=== PATIENT | male | born 1970 | race Caucasian/White ===

== ENCOUNTER 2018-09-05 04:24 | Emergency (ER) | payer BC ==
[2018-09-05 05:28] LABS: Absolute Lymphocytes (CBC) 2.2 K/uL (0.7-4.9); Absolute Monocytes 0.5 K/uL (0.1-1.3); Absolute Neutrophil 2.8 K/uL (1.8-8.0); Basophils % 0.6 % (0-1.3); Lymphocytes % 39.2 % (15.3-44.8); MPV 7.2 fL (7.6-11.3); Monocytes % 8.5 % (3.3-12.3); RBC Red Blood Cell Count 4.85 M/uL (4.33-5.43)
[2018-09-05 05:29] LABS: Protime INR 1.06
[2018-09-05 05:48] LABS: ALT/SGPT 85 U/L (12-78); AST/SGOT 36 U/L (15-37); Albumin 4.4 g/dL (3.4-5.0); Alkaline Phosphatase 64 U/L (45-117); BUN Blood Urea Nitrogen 23 mg/dL (7-18); Bicarbonate 27 mmol/L (21-32); Bilirubin Direct 0.1 mg/dL (0-0.2); Bilirubin Total 0.7 mg/dL (0.2-1.0); Glucose Level 114 mg/dL (74-106); Magnesium 2.2 mg/dL (1.8-2.4); NT PRO-BNP 13 pg/mL (<125); Potassium 3.8 mmol/L (3.5-5.1); Protein, Total 7.6 g/dL (6.4-8.2); Sodium Level 140 mmol/L (136-145); Troponin (Emerg Dept Use Only) < 0.02 ng/mL (0.0-0.045)
[2018-09-05] MEDS ORDERED: LIDOCAINE VISCOUS 2% SOLN 15 ML UDC ONE (06:58)
[2018-09-05] MEDS ORDERED: MAGNE/ALUM HYDROXD 30 ML UCUP ONE (06:58)
--- NOTE | 2018-09-05 07:19 | RAD REPORT ---
EXAM DESCRIPTION: Shayy Single View09/05/2018 5:32 am CLINICAL HISTORY: Chest pain COMPARISON: 2011 FINDINGS: The lungs appear clear of acute infiltrate. The heart is normal size. Pacemaker leads in place IMPRESSION: No acute abnormalities displayed
--- NOTE | 2018-09-05 07:19 | RAD REPORT ---
EXAM DESCRIPTION: CT - Chest For Pe Angio - 09/05/2018 6:46 am CLINICAL HISTORY: Chest pain COMPARISON: None. TECHNIQUE: Dynamically enhanced axial 3 mm thick images of the chest were obtained during administra tion of <100> mL Isovue 370 IV contrast. Coronal and oblique reconstruction images were generated and reviewed. Exam utilizes a protocol for optimal evaluation of pulmonary arterial tree. Maximum intensity projections 3D imaging was utilized All CT scans are performed using dose optimization technique as appropriate and may include automated exposure control or mA/KV adjustment according to patient size. FINDINGS: The evaluation of the peripheral pulmonary arteries is suboptimal secondary to respiratory motion artifact. A pulmonary embolus is not seen. A thoracic aortic aneurysm is not noted. A pleural effusion is not seen. A pericardial effusion is not seen. A lung consolidation is not present. Fatty liver IMPRESSION: Negative for a pulmonary embolism.
--- NOTE | 2018-09-05 07:26 | ER ---
Nurse's Notes [facility] Name: Mainor Childers Age: 48 yrs Sex: Male : 1970 Arrival Date: 09/05/2018 Time: 04:30 Bed 18 Private MD: Diagnosis: Dyspnea Presentation: 09/05 05:03 Presenting complaint: Patient states: "I was using the restroom and felt a flush jd3 feeling all over my body, fatigue, and dizzy. I sat down and waiting for the feeling to pass before I came to the ER. 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 Transition of care: patient was not received from another setting of care. Onset of symptoms was September 05, 2018. Risk Assessment: Do you want to hurt yourself or someone else? Patient reports no desire to harm self or others. Initial Sepsis Screen: Does the patient meet any 2 criteria? No. Patient's initial sepsis screen is negative. Does the patient have a suspected source of infection? No. Patient's initial sepsis screen is negative. Care prior to arrival: None. 05:03 Method Of Arrival: Wheelchair jd3 05:03 Acuity: BRINA 2 jd3 Triage Assessment: 05:13 Respiratory: Onset: The symptoms/episode began/occurred just prior to arrival, the jd3 patient has mild shortness of breath. Historical: - Allergies: 05:08 No Known Allergies; jd3 - Home Meds: 05:08 tamsulosin oral oral [Active]; pantoprazole oral oral [Active]; AndroGel transdermal jd3 transdermal [Active]; - PMHx: 05:09 prostate problem; bradicardia; jd3 - PSHx: 05:09 pacemaker; jd3 - Immunization history:: Adult Immunizations up to date. - Social history:: Smoking status: Patient/guardian denies using tobacco. - Ebola Screening: : Patient negative for fever greater than or equal to 101.5 degrees Fahrenheit, and additional compatible Ebola Virus Disease symptoms. Screenin:13 Abuse screen: Denies threats or abuse. Nutritional screening: No deficits noted. jd3 Tuberculosis screening: No symptoms or risk factors identified. Fall Risk IV access (20 points). Ambulatory Aid- None/Bed Rest/Nurse Assist (0 pts). Gait- Normal/Bed Rest/Wheelchair (0 pts) Mental Status- Oriented to own ability (0 pts). Total Leonard Fall Scale indicates No Risk (0-24 pts). Assessment: 05:11 General: Appears in no apparent distress. uncomfortable, Behavior is calm, cooperative, jd3 appropriate for age, anxious. Pain: Complains of pain in chest Pain currently is 0 out of 10 on a pain scale. Quality of pain is described as pressure. Neuro: Level of Consciousness is awake, alert, obeys commands, Oriented to person, place, time, situation, Appropriate for age. Cardiovascular: Heart tones S1 S2 present Capillary refill < 3 seconds Patient's skin is warm and dry. Rhythm is regular. Respiratory: Reports shortness of breath at rest Airway is patent Respiratory effort is even, unlabored, Respiratory pattern is regular, symmetrical, Breath sounds are clear bilaterally. GI: No signs and/or symptoms were reported involving the gastrointestinal system. : No signs and/or symptoms were reported regarding the genitourinary system. EENT: No signs and/or symptoms were reported regarding the EENT system. Derm: Skin is intact, Skin is dry, Skin is normal, Skin temperature is warm. Musculoskeletal: Circulation, motion, and sensation intact. Range of motion: intact in all extremities. 06:34 Reassessment: Patient appears in no apparent distress at this time. No changes from jd3 previously documented assessment. Patient and/or family updated on plan of care and expected duration. Pain level reassessed. Patient is alert, oriented x 3, equal unlabored respirations, skin warm/dry/pink. 06:48 Reassessment: pt reporting epigastric pressure and burping, provider notified, new jd3 orders received see JUN. 07:00 Reassessment: RECD REPORT FROM JOSÉ MIGUEL SORIANO. 48YO WM P/W CP, H/O CARDIAC DISEASE. REPEAT bp CARDIAC ENZYMES PENDNG FOR DISPO. 08:07 Reassessment: PT D/C HOME AMBULATORY WITH FAMILY, DX WITH DYSPNEA. bp Vital Signs: 05:09 BP 132 / 91; Pulse 72; Resp 17 S; Temp 98.5(O); Pulse Ox 100% on R/A; Weight 98.88 kg jd3 (R); Height 5 ft. 10 in. (177.80 cm) (R); Pain 0/10; 06:03 BP 118 / 75; Pulse 79; Resp 18; Pulse Ox 98% on R/A; mt 06:50 BP 121 / 64; Pulse 85; Resp 17 S; Pulse Ox 99% on R/A; Pain 0/10; jd3 08:06 BP 126 / 80; Pulse 73; Resp 16; Temp 98.5; Pulse Ox 98% ; bp 05:09 Body Mass Index 31.28 (98.88 kg, 177.80 cm) jd3 ED Course: 04:30 Patient arrived in ED. es 04:42 Fam Cary MD is Attending Physician. tw4 04:48 EKG done, by ED staff, reviewed by Fam Cary MD. Inserted saline lock: 20 gauge mt in right antecubital area, using aseptic technique. Blood collected. 05:01 Sagar Torres, RN is Primary Nurse. jd3 05:06 Triage completed. jd3 05:10 Arm band placed on. jd3 05:14 Patient has correct armband on for positive identification. Bed in low position. Call jd3 light in reach. Side rails up X 1. Adult w/ patient. 05:31 X-ray completed. Portable x-ray completed in exam room. Patient tolerated procedure kw well. 05:32 XRAY Chest (1 view) In Process Unspecified. EDMS 06:47 CT Chest For PE Angio In Process Unspecified. EDMS 07:22 Attending Physician role handed off by Fam Cary MD seven 07:22 Renaldo Hamlin MD is Attending Physician. seven 07:32 Kp Tsang MD is Referral Physician. tw4 07:32 Benedicto Wolff MD is Referral Physician. tw4 08:05 No provider procedures requiring assistance completed. IV discontinued, intact, bp bleeding controlled, No redness/swelling at site. Pressure dressing applied. Administered Medications: 06:51 Drug: GI Cocktail without - (Maalox Suspension 30 ml, Lidocaine Liquid 2 % 15 jd3 ml) Route: PO; 07:04 Follow up: Response: No adverse reaction; Pain is decreased bp Outcome: 07:26 Discharge ordered by . tw4 08:08 Discharged to home ambulatory, with family. bp 08:08 Condition: stable 08:08 Discharge instructions given to patient, Instructed on discharge instructions, follow up and referral plans. medication usage, Demonstrated understanding of instructions, follow-up care, medications, Prescriptions given X 1. 08:09 Patient left the ED. bp Signatures: Dispatcher [employer] Renaldo Segovia MD MD cha Salyer, Gabrielle Paniagua, Sagar Singh mt, RN RN jd3 Channing Marley RN RN bp Wadley, Terrence, MD MD tw4
--- NOTE | 2018-09-05 07:26 | EDPHYS ---
Physician Documentation [facility] Name: Mainor Childers Age: 48 yrs Sex: Male : 1970 Arrival Date: 09/05/2018 Time: 04:30 Bed 18 Private MD: ED Physician Renaldo Hamlin HPI: 09/05 07:01 This 48 yrs old Male presents to ER via Wheelchair with complaints of tw4 Breathing Difficulty, Faint sensation. 07:01 The patient has shortness of breath at rest. Onset: The symptoms/episode began/occurred tw4 today. Duration: The symptoms are continuous, and are unchanged since they started. The patient's shortness of breath has no apparent modifying factors. Severity of symptoms: At their worst the symptoms were moderate in the emergency department the symptoms have resolved. The patient has not experienced similar symptoms in the past. Historical: - Allergies: 05:08 No Known Allergies; jd3 - Home Meds: 05:08 tamsulosin oral oral [Active]; pantoprazole oral oral [Active]; AndroGel transdermal jd3 transdermal [Active]; - PMHx: 05:09 prostate problem; bradicardia; jd3 - PSHx: 05:09 pacemaker; jd3 - Immunization history:: Adult Immunizations up to date. - Social history:: Smoking status: Patient/guardian denies using tobacco. - Ebola Screening: : Patient negative for fever greater than or equal to 101.5 degrees Fahrenheit, and additional compatible Ebola Virus Disease symptoms. ROS: 07:01 Constitutional: Negative for fever, chills, and weight loss, Cardiovascular: Negative tw4 for chest pain, palpitations, and edema, Abdomen/GI: Negative for abdominal pain, nausea, vomiting, diarrhea, and constipation, Back: Negative for injury and pain, MS/Extremity: Negative for injury and deformity, Skin: Negative for injury, rash, and discoloration, Neuro: Negative for headache, weakness, numbness, tingling, and seizure. 07:01 Respiratory: Positive for shortness of breath, Negative for cough, dyspnea on exertion. Exam: 07:01 Constitutional: This is a well developed, well nourished patient who is awake, alert, tw4 and in no acute distress. Head/Face: Normocephalic, atraumatic. Chest/axilla: Normal chest wall appearance and motion. Nontender with no deformity. No lesions are appreciated. Cardiovascular: Regular rate and rhythm with a normal S1 and S2. No gallops, murmurs, or rubs. Normal PMI, no JVD. No pulse deficits. Respiratory: Lungs have equal breath sounds bilaterally, clear to auscultation and percussion. No rales, rhonchi or wheezes noted. No increased work of breathing, no retractions or nasal flaring. Abdomen/GI: Soft, non-tender, with normal bowel sounds. No distension or tympany. No guarding or rebound. No evidence of tenderness throughout. Back: No spinal tenderness. No costovertebral tenderness. Full range of motion. MS/ Extremity: Pulses equal, no cyanosis. Neurovascular intact. Full, normal range of motion. Neuro: Awake and alert, GCS 15, oriented to person, place, time, and situation. Cranial nerves II-XII grossly intact. Motor strength 5/5 in all extremities. Sensory grossly intact. Cerebellar exam normal. Normal gait. Psych: Awake, alert, with orientation to person, place and time. Behavior, mood, and affect are within normal limits. Vital Signs: 05:09 BP 132 / 91; Pulse 72; Resp 17 S; Temp 98.5(O); Pulse Ox 100% on R/A; Weight 98.88 kg jd3 (R); Height 5 ft. 10 in. (177.80 cm) (R); Pain 0/10; 06:03 BP 118 / 75; Pulse 79; Resp 18; Pulse Ox 98% on R/A; mt 06:50 BP 121 / 64; Pulse 85; Resp 17 S; Pulse Ox 99% on R/A; Pain 0/10; jd3 08:06 BP 126 / 80; Pulse 73; Resp 16; Temp 98.5; Pulse Ox 98% ; bp 05:09 Body Mass Index 31.28 (98.88 kg, 177.80 cm) jd3 MDM: 04:42 Patient medically screened. 09/05 04:48 Order name: Basic Metabolic Panel; Complete Time: 07:22 mt 09/05 04:48 Order name: CBC with Diff; Complete Time: 07:22 co 09/05 04:48 Order name: LFT's; Complete Time: 07:22 co 09/05 04:48 Order name: Magnesium; Complete Time: 07:22 mt 09/05 04:48 Order name: NT PRO-BNP; Complete Time: 07:22 mt 09/05 04:48 Order name: PT-INR; Complete Time: 07:22 mt 09/05 04:48 Order name: Troponin (emerg Dept Use Only); Complete Time: 07:22 mt 09/05 04:48 Order name: XRAY Chest (1 view); Complete Time: 07:22 mt 09/05 04:48 Order name: EKG; Complete Time: 04:49 mt 09/05 04:48 Order name: Cardiac monitoring; Complete Time: 04:49 mt 09/05 04:48 Order name: EKG - Nurse/Tech; Complete Time: 04:49 mt 09/05 05:32 Order name: CT Chest For PE Angio; Complete Time: 07:22 tw4 09/05 07:04 Order name: Troponin (emerg Dept Use Only) bp 09/05 04:48 Order name: IV Saline Lock; Complete Time: 04:49 mt 09/05 04:48 Order name: Labs collected and sent; Complete Time: 04:49 mt 09/05 04:48 Order name: O2 Per Protocol; Complete Time: 04:49 mt 09/05 04:48 Order name: O2 Sat Monitoring; Complete Time: 04:49 mt EC:01 Rate is 74 beats/min. Rhythm is regular. QRS Nikolai is Normal. [place] interval is normal. QRS tw4 interval is normal. QT interval is normal. No Q waves. T waves are Normal. No ST changes noted. Clinical impression: NSR w/ Non-specific ST/T Changes. Interpreted by me. Reviewed by me. Administered Medications: 06:51 Drug: GI Cocktail without - (Maalox Suspension 30 ml, Lidocaine Liquid 2 % 15 jd3 ml) Route: PO; 07:04 Follow up: Response: No adverse reaction; Pain is decreased bp Disposition: 09/05/18 07:26 Discharged to Home. Impression: Dyspnea. - Condition is Stable. - Discharge Instructions: Gastritis, Adult, Shortness of Breath, [id number]. - Prescriptions for Protonix 40 mg Oral Tablet - take 1 tablet by ORAL route once daily; 30 tablet. - Medication Reconciliation Form, Thank You Letter, Antibiotic Education, Prescription Opioid Use form. - Follow up: Private Physician; When: Upon discharge from the Emergency Department; Reason: If symptoms return, Recheck today's complaints, Continuance of care. Follow up: Kp Tsang MD; When: Upon discharge from the Emergency Department; Reason: If symptoms return, Recheck today's complaints, Continuance of care. Follow up: Benedicto Wolff MD; When: Upon discharge from the Emergency Department; Reason: If symptoms return, Recheck today's complaints, Continuance of care. - Problem is new. - Symptoms have improved. Signatures: Dispatcher [employer] EDRenaldo Meeks MD MD cha Thompson, [place] Sagar Nixon RN RN jChanning Irene RN RN bp Wadley, Terrence, MD MD tw4 Corrections: (The following items were deleted from the chart) 07:32 07:26 09/05/2018 07:26 Discharged to Home. Impression: Dyspnea. Condition is Stable. tw4 Forms are Medication Reconciliation Form, Thank You Letter, Antibiotic Education, Prescription Opioid Use. Follow up: Private Physician; When: Upon discharge from the Emergency Department; Reason: If symptoms return, Recheck today's complaints, Continuance of care. Problem is new. Symptoms have improved. tw4 08:09 07:32 09/05/2018 07:26 Discharged to Home. Impression: Dyspnea. Condition is Stable. bp Forms are Medication Reconciliation Form, Thank You Letter, Antibiotic Education, Prescription Opioid Use. Follow up: Private Physician; When: Upon discharge from the Emergency Department; Reason: If symptoms return, Recheck today's complaints, Continuance of care. Follow up: Kp Tsang; When: Upon discharge from the Emergency Department; Reason: If symptoms return, Recheck today's complaints, Continuance of care. Follow up: Benedicto Wolff; When: Upon discharge from the Emergency Department; Reason: If symptoms return, Recheck today's complaints, Continuance of care. Problem is new. Symptoms have improved. tw4
--- NOTE | 2018-09-05 07:52 | EKG ---
Test Date: 2018-09-05 Test Time: 04:41:20 Branch Administrator: WALLACE MEASUREMENT RESULTS: Intervals: Rate: 70 ME: 170 QRSD: 86 QT: 398 QTc: 429 [place]: P: 39 ME: 170 QRS: 79 T: 4 INTERPRETIVE STATEMENTS: Normal sinus rhythm Normal ECG Compared to ECG 10/03/2011 15:52:35 no significant change from previous ECG Electronically Signed On 09-05-18 07:52:15 CDT by Emre Gloria
[2018-09-05 14:39] VITALS: TEMP 98.5
[2018-09-05 14:44] VITALS: BP 126/80; O2SAT 98
--- NOTE | 2018-09-06 07:53 | EKG ---
Test Date: 2018-09-05 Test Time: 06:52:39 [employer] Production Technician: WALLACE MEASUREMENT RESULTS: Intervals: Rate: 74 AK: 170 QRSD: 78 QT: 368 QTc: 408 [place]: P: 22 AK: 170 QRS: 42 T: 24 INTERPRETIVE STATEMENTS: Normal sinus rhythm Anterior infarct, age undetermined Abnormal ECG Compared to ECG 09/05/2018 04:41:20 Myocardial infarct finding now present Electronically Signed On 09-06-18 07:52:40 CDT by Emre Gloria
== END 2018-09-05 08:09 | disposition home or self-care (01) ==
LOC: ER 04:24
DX: R06.00 Dyspnea, unspecified (principal); N42.9 Disorder of prostate, unspecified; Z95.0 Presence of cardiac pacemaker
CPT/HCPCS: 36415; 71045; 71275; 80048; 80076; 83735; 83880; 84484; 85025; 85610; 93005; 99284; Q9967

== ENCOUNTER 2018-12-11 08:47 | Emergency (ER) | payer BC ==
[2018-12-11 09:27] LABS: Absolute Lymphocytes (CBC) 1.8 K/uL (0.7-4.9); Basophils % 0.3 % (0-1.3); Hematocrit 46.1 % (39.6-49.0); Lymphocytes % 33.5 % (15.3-44.8); MPV 6.9 fL (7.6-11.3); RBC Red Blood Cell Count 4.93 M/uL (4.33-5.43)
[2018-12-11 09:45] LABS: BUN Blood Urea Nitrogen 18 mg/dL (7-18); Bicarbonate 27 mmol/L (21-32); Glucose Level 116 mg/dL (74-106); Potassium 3.8 mmol/L (3.5-5.1); Sodium Level 142 mmol/L (136-145); Troponin (Emerg Dept Use Only) < 0.02 ng/mL (0.0-0.045)
--- NOTE | 2018-12-11 09:56 | RAD REPORT ---
EXAM DESCRIPTION: CT - Head Brain Wo Cont - 12/11/2018 9:44 am CLINICAL HISTORY: Hypertension, dizziness, syncope COMPARISON: None. TECHNIQUE: Axial 5 mm thick images of the head were obtained without IV contrast. All CT scans are performed using dose optimization technique as appropriate and may include automated exposure control or mA/KV adjustment according to patient size. FINDINGS: No intracranial hemorrhage, mass, edema or shift of mid-line structures. No acute infarcti on changes seen. No abnormal extra-axial fluid collections. Ventricles are normal. Mastoid air cells and visualized portions of the paranasal sinuses are clear. No acute bony findings. IMPRESSION: Negative non-contrast CT head examination.
--- NOTE | 2018-12-11 09:58 | EKG ---
Test Date: 2018-12-11 Test Time: 09:30:22 Steam Frame Operator: LISA MEASUREMENT RESULTS: Intervals: Rate: 67 SD: 174 QRSD: 80 QT: 388 QTc: 409 [place]: P: 21 SD: 174 QRS: 40 T: -3 INTERPRETIVE STATEMENTS: Normal sinus rhythm Normal ECG Compared to ECG 09/05/2018 06:52:39 Myocardial infarct finding no longer present Electronically Signed On 12-11-18 09:57:56 CDT by Emre Gloria
--- NOTE | 2018-12-11 10:34 | ER ---
Nurse's Notes [facility] Name: Mainor Childers Age: 48 yrs Sex: Male : 1970 Arrival Date: 12/11/2018 Time: 08:49 Bed 8 Private MD: Roge Caputo Diagnosis: Hypertension Presentation: 12/11 09:14 Presenting complaint: Patient states: Feeling sort of off for a few days, intermittent jl7 dizziness, BP this morning 175/90. Transition of care: patient was not received from another setting of care. Onset of symptoms was December 08, 2018. Risk Assessment: Do you want to hurt yourself or someone else? Patient reports no desire to harm self or others. Initial Sepsis Screen: Does the patient meet any 2 criteria? No. Patient's initial sepsis screen is negative. Does the patient have a suspected source of infection? No. Patient's initial sepsis screen is negative. Care prior to arrival: None. 09:14 Method Of Arrival: Ambulatory [facility] 09:14 Acuity: BRINA 3 jl7 Triage Assessment: 09:17 General: Appears in no apparent distress. uncomfortable, Behavior is calm, cooperative, jl7 appropriate for age. Pain: Denies pain. EENT: No signs and/or symptoms were reported regarding the EENT system. Neuro: Level of Consciousness is awake, alert, obeys commands, Oriented to person, place, time, situation, Moves all extremities. Full function Gait is steady, Speech is normal, Facial symmetry appears normal. Cardiovascular: Patient's skin is warm and dry. Respiratory: Airway is patent Respiratory effort is even, unlabored, Respiratory pattern is regular, symmetrical. GI: Abdomen is round non-distended, Abd is soft and non tender X 4 quads. Reports bloating. : No signs and/or symptoms were reported regarding the genitourinary system. Derm: Skin is pink, warm \T\ dry. Musculoskeletal: No signs and/or symptoms reported regarding the musculoskeletal system. Historical: - Allergies: : No Known Allergies; jl7 - Home Meds: : AndroGel transdermal [Active]; pantoprazole Oral [Active]; jl7 - PMHx: :17 bradicardia; Prostate problem; Pacemaker; jl7 - PSHx: : pacemaker; jl7 - Immunization history:: Adult Immunizations up to date. - Ebola Screening: : No symptoms or risks identified at this time. - Family history:: not pertinent. - Social history:: Smoking status: unknown. - Hospitalizations: : No recent hospitalization is reported. Screenin:19 Abuse screen: Denies threats or abuse. Denies injuries from another. Nutritional jl7 screening: No deficits noted. Tuberculosis screening: No symptoms or risk factors identified. Fall Risk IV access (20 points). Total Leonard Fall Scale indicates No Risk (0-24 pts). Assessment: 09:19 General: See triage assessment. jl7 10:00 Reassessment: Patient appears in no apparent distress at this time. No changes from jl7 previously documented assessment. Patient and/or family updated on plan of care and expected duration. Pain level reassessed. Patient is alert, oriented x 3, equal unlabored respirations, skin warm/dry/pink. Vital Signs: 09:17 BP 143 / 95; Pulse 86; Resp 16 S; Pulse Ox 100% on R/A; Weight 99.79 kg (R); Height 5 jl7 ft. 11 in. (180.34 cm) (R); Pain 0/10; 09:54 BP 145 / 86; Pulse 67; Resp 13 S; Pulse Ox 98% on R/A; jl7 11:18 BP 128 / 89; Pulse 65; Resp 16 S; Pulse Ox 98% on R/A; jl7 09:17 Body Mass Index 30.68 (99.79 kg, 180.34 cm) jl7 ED Course: 08:49 Patient arrived in ED. mr 08:49 Roge Caputo MD is Private Physician. mr 08:59 Frederic Landeros, CHRISTIE is Primary Nurse. jl7 08:59 Modesto Colón MD is Attending Physician. rn 09:16 Triage completed. jl7 09:17 Arm band placed on right wrist. jl7 09:18 Initial lab(s) drawn, by me, sent to lab. Inserted saline lock: 20 gauge in right aa5 antecubital area, using aseptic technique. Blood collected. 09:19 Patient has correct armband on for positive identification. Placed in gown. Bed in low jl7 position. Call light in reach. Side rails up X 1. security monitor on. Pulse ox on. NIBP on. 09:46 CT Head Brain wo Cont In Process Unspecified. EDMS 10:33 Roge Caputo MD is Referral Physician. rn 11:18 No provider procedures requiring assistance completed. IV discontinued, intact, jl7 bleeding controlled, No redness/swelling at site. Pressure dressing applied. Administered Medications: No medications were administered Outcome: 10:33 Discharge ordered by MD. rn 11:18 Discharged to home ambulatory. jl7 11:18 Condition: stable 11:18 Discharge instructions given to patient, Instructed on discharge instructions, follow up and referral plans. Demonstrated understanding of instructions, follow-up care. 11:19 Patient left the ED. jl7 Signatures: Dispatcher [employer] EDNJ Gaston Meredith Colón, MD SAURAV Salvador rn Mable Adam, RN RN aa5 Frederic Landeros RN RN jl7
--- NOTE | 2018-12-11 10:35 | EDPHYS ---
Physician Documentation [facility] Name: Mainor Childers Age: 48 yrs Sex: Male : 1970 Arrival Date: 12/11/2018 Time: 08:49 Bed 8 Private MD: Roge Caputo ED Physician Modesto Colón HPI: 12/11 09:24 This 48 yrs old Male presents to ER via Ambulatory with complaints of High rn Blood Pressure. 09:24 The patient has elevated blood pressure and discovered this at home. Onset: The rn symptoms/episode began/occurred at an unknown time. Modifying factors:. Associated signs and symptoms: Pertinent positives:. 09:25 Associated signs and symptoms: Pertinent positives: dizziness, Pertinent negatives: rn chest pain, dyspnea, headache, nausea, visual changes, vomiting, weakness. Severity of symptoms: At its worst the blood pressure was moderate, in the emergency department the blood pressure is improved. The patient has experienced similar episodes in the past. The patient has not recently seen a physician. Reports high blood pressure over last year or so, has not been started on meds yet, states pcp has been keeping an eye on it. Reports feeling intermittent lightheadedness over last 2-3 days, denies chest pain/sob/abd pain/bowel or bladder issues. No focal neurological complaint.. 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 - Ebola Screening: : No symptoms or risks identified at this time. - Family history:: not pertinent. - Social history:: Smoking status: unknown. - Hospitalizations: : No recent hospitalization is reported. ROS: 09:25 Constitutional: Negative for fever, chills, and weight loss, Eyes: Negative for injury, rn pain, redness, and discharge, Neck: Negative for injury, pain, and swelling, Cardiovascular: Negative for chest pain, palpitations, and edema, Respiratory: Negative for shortness of breath, cough, wheezing, and pleuritic chest pain, Abdomen/GI: Negative for abdominal pain, nausea, vomiting, diarrhea, and constipation, Back: Negative for injury and pain, MS/Extremity: Negative for injury and deformity, Skin: Negative for injury, rash, and discoloration, Neuro: Negative for headache, weakness, numbness, tingling, and seizure. Exam: 09:25 Constitutional: This is a well developed, well nourished patient who is awake, alert, rn and in no acute distress. Sitting upright. Head/Face: Normocephalic, atraumatic. Eyes: Pupils equal round and reactive to light, extra-ocular motions intact. Lids and lashes normal. Conjunctiva and sclera are non-icteric and not injected. Cornea within normal limits. Periorbital areas with no swelling, redness, or edema. ENT: MMM Neck: Trachea midline, no thyromegaly or masses palpated, and no cervical lymphadenopathy. Supple, full range of motion Cardiovascular: Regular rate and rhythm. No pulse deficits. Respiratory: No increased work of breathing, no retractions or nasal flaring. Abdomen/GI: soft, non-tender MS/ Extremity: Pulses equal, no cyanosis. Neurovascular intact. Full, normal range of motion. Equal circumference. Neuro: Awake and alert, GCS 15, oriented to person, place, time, and situation. Cranial nerves II-XII grossly intact. Motor strength 5/5 in all extremities. Sensory grossly intact. Cerebellar exam normal. 09:49 ECG was reviewed by the Attending Physician. rn Vital Signs: 09:17 BP 143 / 95; Pulse 86; Resp 16 S; Pulse Ox 100% on R/A; Weight 99.79 kg (R); Height 5 jl7 ft. 11 in. (180.34 cm) (R); Pain 0/10; 09:54 BP 145 / 86; Pulse 67; Resp 13 S; Pulse Ox 98% on R/A; jl7 11:18 BP 128 / 89; Pulse 65; Resp 16 S; Pulse Ox 98% on R/A; jl7 09:17 Body Mass Index 30.68 (99.79 kg, 180.34 cm) jl7 MDM: 08:59 Patient medically screened. rn 10:31 Differential diagnosis: hypertensive crisis, Malignant HTN. Data reviewed: vital signs, rn nurses notes, lab test result(s), EKG, radiologic studies, CT scan, and as a result, I will discharge patient. Counseling: I had a detailed discussion with the patient and/or guardian regarding: the historical points, exam findings, and any diagnostic results supporting the discharge/admit diagnosis, lab results, radiology results, the need for outpatient follow up, to return to the emergency department if symptoms worsen or persist or if there are any questions or concerns that arise at home. Response to treatment: the patient's symptoms have mildly improved after treatment, and as a result, I will discharge patient. Special discussion: I discussed with the patient/guardian in detail that at this point there is no indication for admission to the hospital. It is understood, however, that if the symptoms persist or worsen the patient needs to return immediately for re-evaluation. Based on the history and exam findings, there is no indication for further emergent testing or inpatient evaluation. I discussed with the patient/guardian the need to see the math professor for further evaluation of the symptoms. I discussed with the patient/guardian the need to see the primary care provider for further evaluation of the symptoms. ED course: Neg w/u here, neg ct head, recommend outpt f/u with pcp and cardiology, and take BP diary, sees Dr. Caputo and will likely need medication soon. . 10:33 Counseling: I had a detailed discussion with the patient and/or guardian regarding: the rn presence of at least one elevated blood pressure reading (>120/80) during this emergency department visit. Special discussion: I have referred the patient to see his PCP for further evaluation of high blood pressure. 12/11 09:13 Order name: CBC with Diff; Complete Time: :49 rn 12/11 09:13 Order name: Basic Metabolic Panel; Complete Time: :49 rn 12/11 09:13 Order name: IV Start; Complete Time: 09:20 rn 12/11 09:13 Order name: EKG; Complete Time: 09:14 rn 12/11 09:13 Order name: Troponin (emerg Dept Use Only); Complete Time: 09:49 rn 12/11 09:13 Order name: CT Head Brain wo Cont; Complete Time: 10:06 rn 12/11 09:13 Order name: EKG - Nurse/Tech; Complete Time: 09:29 rn EC:49 Rate is 67 beats/min. Rhythm is regular. QRS Amelia is Normal. PA interval is normal. QRS rn interval is normal. QT interval is normal. No Q waves. T waves are Normal. No ST changes noted. Clinical impression: Normal ECG. Interpreted by me. Reviewed by me. Administered Medications: No medications were administered Disposition: 12/11/18 10:33 Discharged to Home. Impression: Hypertension. - Condition is Stable. - Discharge Instructions: Hypertension, Managing Your Hypertension. - Medication Reconciliation Form, Thank You Letter, Antibiotic Education, Prescription Opioid Use form. - Follow up: Roge Caputo MD; When: As needed; Reason: Recheck today's complaints, Re-evaluation by your physician. - Problem is an ongoing problem. - Symptoms have improved. Signatures: Dispatcher [employer] EDMS Modesto Colón MD MD rn Leal, Jahala, RN RN jl7 Corrections: (The following items were deleted from the chart) 11:19 10:33 12/11/2018 10:33 Discharged to Home. Impression: Hypertension. Condition is jl7 Stable. Forms are Medication Reconciliation Form, Thank You Letter, Antibiotic Education, Prescription Opioid Use. Follow up: Roge Caputo; When: As needed; Reason: Recheck today's complaints, Re-evaluation by your physician. Problem is an ongoing problem. Symptoms have improved. rn
[2018-12-11 11:37] VITALS: O2SAT 98
[2018-12-11 11:39] VITALS: BP 128/89
== END 2018-12-11 11:19 | disposition home or self-care (01) ==
LOC: ER 08:47
DX: I10 Essential (primary) hypertension (principal); Z95.0 Presence of cardiac pacemaker
CPT/HCPCS: 36415; 70450; 80048; 84484; 85025; 93005; 99284

== ENCOUNTER 2020-07-28 09:44 | Day surgery (SDC) | payer OTHER, BC ==
[2020-07-25 14:29] LABS: Absolute Lymphocytes (CBC) 2.7 K/uL (0.7-4.9); Basophils % 0.4 % (0-1.3); Hematocrit 47.4 % (39.6-49.0); Lymphocytes % 45.1 % (15.3-44.8); MPV 7.2 fL (7.6-11.3); RBC Red Blood Cell Count 5.02 M/uL (4.33-5.43)
[2020-07-25 14:34] LABS: Potassium 4.1 mmol/L (3.5-5.1)
[2020-07-25 15:28] LABS: Blood Morphology Comment NOT SEEN (NOT SEEN); Platelet Estimate ADEQ
[2020-07-28] MEDS: Ringers Lactate 1,000 ML IV ONE ×2 (10:00→10:15)
[2020-07-28] MEDS ORDERED: ROCURONIUM 50 MG/5 ML VIAL IV ONE (10:14)
[2020-07-28] MEDS ORDERED: FENTANYL CITR 100 MCG/2 ML ONE (10:14)
[2020-07-28] MEDS ORDERED: MIDAZOLAM HCL 2 MG/2 ML INJ ONE (10:14)
[2020-07-28] MEDS ORDERED: LIDOCAINE 1% MPF 5 ML VIAL ONE (10:14)
[2020-07-28] MEDS ORDERED: dexAMETHasone 10 MG/ML VIAL ONE (10:14)
[2020-07-28] MEDS ORDERED: propofoL 200 MG/20 ML VIAL IV ONE (10:14)
[2020-07-28] MEDS ORDERED: CEFAZOLIN/SWI 1gm 1 GM/10 ML SYR ONE (10:16)
[2020-07-28] MEDS ORDERED: GLYCOPYRROLATE 0.2 MG/ML SYR ONE ×3 (10:48→11:32)
--- NOTE | 2020-07-28 11:18 | P.BOP ---
Preoperative diagnosis: tender reducible umbilical hernia, incarcerated LIH Postoperative diagnosis: same Primary procedure: 1. Laparoscopic repair tender incarcerated left inguinal hernia with mesh Secondary procedure: 2. open repair of tender umbilical hernia [employer] Laborer: Chanelle Reilly) Estimated blood loss: <10cc Specimen: hernia sac Findings: as above Anesthesia: General Complications: None Implants: 3d mesh inguinal Transferred to: Recovery Room
[2020-07-28] MEDS ORDERED: KETOROLAC 30 MG/ML INJ ONE (11:32)
[2020-07-28] MEDS ORDERED: NEOSTIGMINE 1 MG/ML -5 ML ONE (11:34)
[2020-07-28] MEDS ORDERED: MEPERIDINE HCL 25 MG/ML SYR ONE (12:05)
--- NOTE | 2020-07-28 12:25 | OP ---
Date of Procedure: 07/28/2020 Surgeon: Nick Almonte MD Preoperative Diagnoses: 1.Tender reducible umbilical hernia. 2.Incarcerated tender left inguinal hernia. Procedures: 1.Laparoscopic repair of tender left inguinal hernia with mesh. 2.Open repair of umbilical hernia. Anesthesia: General plus local. Mesh: 3D medium mesh in the left inguinal region. Complications: None. Estimated Blood Loss: Less than 10 cc. Findings: As above. Indications: This is a case of a 50-year-old patient who comes with 2 problems, a tender umbilical h ernia and a tender left inguinal hernia. Benefits, alternatives, and risks of repair were fully expl ained to the patient which include, but not limited to infection, bleeding, damage to adjacent struct ures, anesthesia complications, recurrence, chronic pain, chronic numbness, [place], and even . He a lso understands this may not relieve any symptoms. He might need more than one surgical intervention . He signed a consent. Also consenting for the use of mesh after fully explained to him the pros an d cons of mesh placement and allowed to ask questions to his satisfaction. Procedure In Detail: The patient was brought to the operating room and placed in supine position. A nesthesia was done without complication. Time-out was called. Abdominal and inguinal region were pr epped and draped in a sterile fashion. Incision was made in the periumbilical region. We tried to m ruperto that incision to be able to do laparoscopic hernia repair and also used the same incision for the umbilical hernia. Once we have a curvilinear incision, we proceeded to open the anterior rectus she ath, exposed the muscle, and retracted laterally to expose the posterior rectus sheath. The extraper itoneal space was gently developed with the help of blunt dissection. Then, we placed a space maker balloon tipped catheter directed towards the pubic symphysis. A laparoscope was placed in the area a nd the balloon was inflated under direct visualization to create the extraperitoneal space. After th at, the balloon was deflated and removed carefully. Camera was reinserted once again. Air was insuf flated. Once we have visualization of the area, we proceeded to place a 5 mm trocar just above the p ubis symphysis, another one usp between the first and second one. The preperitoneal space was fu rther developed by exposing the inferior epigastric vessels and keeping anterior to the dissection. The Isael's ligament was dissected laterally to it junction with the iliac veins. The dissection co ntinued inferiorly to the iliopubic tract avoiding damage to the femoral branch of the genitofemoral nerve and lateral femoral cutaneous nerve. The cord structures were skeletonized. We noticed a fernando ia sac. Since they had some fatty content, they were reduced. The hernia sac was removed from the c ord and directed into the peritoneal cavity. At that moment, I proceeded to place a 3D mesh, rolled into a complex cylinder, put it through the trocar site. The mesh was placed to cover the direct, in direct spaces. The mesh was secured with a SorbaFix device placed lateral and superior to the iliopu bic tract and inferomedial to the Isael's ligaments. We checked the area for hemostasis, no bleedin g. Hernia sac was retracting into the peritoneal cavity. At that moment, I proceeded to allow to es cape from that area, removed the trocars, closed the anterior rectus sheath with #1 Vicryl. Irrigate d subcutaneous tissue and then we directed our attention to the umbilical area. The same incision wa s used. We proceeded to identify the hernia sac, removed it from the umbilical skin, removed the her jacqueline sac, cleaned the fascia edges. The fascia edges seemed to come together without any major tensio n. So, we proceeded to close that area with #1 Vicryl in a [id number] fashion multiple times. The area was irrigated. Subcutaneous tissue was closed with 3-0 chromic. Skin was closed in a subcu ticular fashion with 3-0 chromic and Steri-Strips on top. Sponge count and instrument counts correct . The patient tolerated the procedure well. The patient was sent to Recovery in stable condition. Disposition: Home. Activity: As tolerated, no heavy lifting. Plan: Follow up in my office in 1 week, call for appointment [phone]. Keep area dry for 48 hours, then may shower. Keep Steri-Strip intact. Cold compress to the left inguinal region. Medications: See orders. HM/MODL Voice ID: [id number] Report ID: [id number]
[2020-07-28 13:45] VITALS: BP 131/75; TEMP 96.8; O2SAT 98
== END 2020-07-28 13:05 | disposition home health service (06) ==
LOC: OR 09:44
PROVIDERS: ATTEND Surgery
PROC: 0WQF0ZZ Repair Abdominal Wall, Open Approach (ICD-10-PCS; 2020-07-28)
PROC: 0YU64JZ Supplement Left Inguinal Region with Synthetic Substitute, Percutaneous Endoscopic Approach (ICD-10-PCS; principal; 2020-07-28 11:30)
DX: K42.9 Umbilical hernia without obstruction or gangrene (principal); K40.30 Unilateral inguinal hernia, with obstruction, without gangrene, not specified as recurrent; Z20.822 Contact with and (suspected) exposure to COVID-19
CPT/HCPCS: 93005; 85025; 80048; 36415; 88302; 49650; 49585; U0003; J2704; J2250; J3010; J1100; J2175; J2710; J0690; J7120